=== PATIENT | male | born 1955 ===

== ENCOUNTER → 2023-08-13 15:43 | Outpatient (BNVA) | payer MEDICARE, SELFPAY | PROVIDERS: Family Provider Family Medicine; PCP Family Medicine; Referring Provider Family Medicine; Visit Provider Orthopaedic Surgery | DX: M16.12 Unilateral primary osteoarthritis, left hip; M54.9 Dorsalgia, unspecified | CPT/HCPCS: 72110; 99204 ==

== ENCOUNTER → 2023-09-25 14:59 | Outpatient (BNVA) | payer MEDICARE, SELFPAY | PROVIDERS: Family Provider Family Medicine; PCP Family Medicine; Referring Provider Orthopaedic Surgery; Visit Provider Specialist | DX: M16.12 Unilateral primary osteoarthritis, left hip | CPT/HCPCS: 73502; 99204 ==

== ENCOUNTER → 2023-10-10 12:54 | Outpatient (BNVA) | payer MEDICARE, SELFPAY | PROVIDERS: Family Provider Family Medicine; PCP Family Medicine; Visit Provider Orthopaedic Surgery | DX: M54.9 Dorsalgia, unspecified (principal); M48.062 Spinal stenosis, lumbar region with neurogenic claudication | CPT/HCPCS: 72110; 99214 ==

== ENCOUNTER 2023-11-12 13:01 | Outpatient (CLI) | payer MEDICARE, SELFPAY ==
--- NOTE | 2023-11-12 13:00 | MR_ITS ---
WS: [id number] MRI LUMBAR SPINE NONCONTRAST HISTORY: Back Pain COMPARISON: 05/18/2015 TECHNIQUE: Sagittal and axial multisequence imaging is submitted. Increasing thoracic kyphosis. Cervical and thoracic spine disc spaces are narrowed and desiccated wit h areas of disc bulging and osteophytosis. Very slight anterior wedging of T5. Straightening of the normal lumbar lordosis. Progression of degenerative disc disease throughout the lumbar spine. There is extensive marrow edema in L5 and to a lesser amount in L4 and S1. No fracture. Most significant disc base narrowing and desiccation at L4-5 and L5-S1. Conus terminates normally at L1-2 disc level. L1-L2: Mild annular disc bulging and osteophytic ridging. Mild ligamentum flavum and facet arthritis. No significant stenosis. L2-L3: Mild annular disc bulging with ligamentum flavum and facet arthritis. Disc encroachment upon t he subarticular recesses and contacting the traversing L3 nerve roots. Disc contact on the nerve root s has progressed. Mild central and subarticular recess stenosis. L3-L4: Diffuse annular disc bulging asymmetric to the LEFT. Shallow LEFT foraminal disc protrusion. D isc contacts the traversing L4 nerve roots which has progressed since the prior study. Mild central, bilateral subarticular recess and foraminal stenosis. L4-L5: Diffuse annular disc bulging with osteophytic ridging, moderate ligamentum flavum and facet ar thritis encroaching upon the thecal sac. Moderate to severe central with bilateral subarticular reces s and foraminal stenosis. There is significant encroachment upon the traversing L5 nerve roots and to a lesser extent the exiting L4 nerve roots. Progression of stenosis since the prior study. L5-S1: Diffuse annular disc bulging with a central disc osteophyte contacting the ventral thecal sac. There is disc contacting the traversing S1 nerve roots. Marked facet and ligamentum flavum hypertrop hy. Moderate to severe central with bilateral subarticular recess and severe LEFT foraminal stenosis. Moderate RIGHT foraminal stenosis. Mild ectasia of the abdominal aorta. MR/MR lumbar spine wo con* [id number] IMPRESSION: 1. Significant multilevel progression of degenerative disc disease and stenose s since 2014. 2. L4-5: Moderate to severe central with bilateral subarticular recess and for aminal stenosis. There is significant disc contact on the traversing L5 nerve r oots and to a lesser extent on the L4 nerve roots. 3. L5-S1: Moderate to severe central with bilateral subarticular recess and se davin LEFT foraminal stenosis. Moderate RIGHT foraminal stenosis. 4. L3-4: Mild central, bilateral subarticular recess and foraminal stenosis. D isc contacts the traversing L4 nerve roots. 5. L2-3: Mild central and bilateral subarticular recess stenosis. Disc contact s the traversing L3 nerve roots. 6. Marrow edema involving portions of L4, L5 and S1.
== END 2023-11-12 13:02 | disposition home or self-care (01) ==
LOC: RAD 13:01
PROVIDERS: Family Provider Family Medicine; PCP Family Medicine; Visit Provider Orthopaedic Surgery
DX: M40.204 Unspecified kyphosis, thoracic region (principal); M25.78 Osteophyte, vertebrae; M48.02 Spinal stenosis, cervical region; M48.04 Spinal stenosis, thoracic region; M48.54XA Collapsed vertebra, not elsewhere classified, thoracic region, initial encounter for fracture; M51.36 Other intervertebral disc degeneration, lumbar region; G95.19 Other vascular myelopathies; M48.07 Spinal stenosis, lumbosacral region; M47.816 Spondylosis without myelopathy or radiculopathy, lumbar region; M51.37 Other intervertebral disc degeneration, lumbosacral region; I77.811 Abdominal aortic ectasia
CPT/HCPCS: 72148

== ENCOUNTER → 2023-12-12 15:23 | Outpatient (BNVA) | payer MEDICARE, SELFPAY | PROVIDERS: Family Provider Family Medicine; PCP Family Medicine; Visit Provider Orthopaedic Surgery | DX: M54.9 Dorsalgia, unspecified (principal); M48.062 Spinal stenosis, lumbar region with neurogenic claudication | CPT/HCPCS: 36415; 80053; 81003; 85025; 99214 ==

== ENCOUNTER 2024-03-17 06:30 | Outpatient (RCR) | payer MEDICARE, SELFPAY | END 2024-04-14 23:59 | disposition home or self-care (01) | LOC: MPT 06:30 | PROVIDERS: Visit Provider Orthopaedic Surgery | DX: M54.9 Dorsalgia, unspecified (principal); G89.29 Other chronic pain | CPT/HCPCS: 97162 ==

== ENCOUNTER → 2024-03-26 07:43 | Outpatient (BNVA) | payer MEDICARE, SELFPAY | PROVIDERS: Family Provider Family Medicine; PCP Family Medicine; Visit Provider Orthopaedic Surgery | DX: M48.062 Spinal stenosis, lumbar region with neurogenic claudication (principal) | CPT/HCPCS: 99214 ==